=== PATIENT | female | born 1985 | race Caucasian/White ===

== ENCOUNTER 2016-10-03 08:14 | Day surgery (SDC) | payer OTHER ==
[~2016-10-03] VITALS: Ht 175.3 cm; Wt 66.7 kg
[~2016-10-03 08:14] MED LIST: MIRENA52 MG IY; PERCOCET 5/31 TABLET PO; SUBUTEX PO; ZOFRAN4 MG PO
[2016-10-03 08:45] VITALS: BP 122/73
[2016-10-03] MEDS ORDERED: MOTRIN600 MG PO (11:18)
[2016-10-03] MEDS ORDERED: COLACE100 MG PO (11:18)
[2016-10-03] MEDS ORDERED: PERCOCET 5/31 TABLET PO (11:18)
[2016-10-03] MEDS ORDERED: ANECREAM30 GM TP (11:18)
[2016-10-03 12:12] VITALS: BP 138/71
== END 2016-10-03 12:54 | disposition home or self-care (01) ==
LOC: SDC 08:14
PROC: 0HB9XZZ Excision of Perineum Skin, External Approach (ICD-10-PCS; principal; 2016-10-03)
DX: K64.4 Residual hemorrhoidal skin tags (principal); F17.200 Nicotine dependence, unspecified, uncomplicated
CPT/HCPCS: 88304; J0690; J1100; J2405; J3010